=== PATIENT | male | born 1960 | race Caucasian/White ===

== ENCOUNTER → 2021-03-18 | Outpatient (CLI) | payer OTHER | LOC: HEART 5 09:54 | DX: J44.9 Chronic obstructive pulmonary disease, unspecified (principal); Z86.16 Personal history of COVID-19 | CPT/HCPCS: 36600; 71046; 82803; 94060; 94729 ==

== ENCOUNTER → 2021-03-18 | Outpatient (CLI) | payer OTHER | LOC: RT 12:33 | DX: Z86.16 Personal history of COVID-19 (principal) | CPT/HCPCS: 36600; 82803 ==

== ENCOUNTER → 2022-07-28 | Outpatient (CLI) | payer OTHER | LOC: HEART CORB 09:00 | DX: R94.31 Abnormal electrocardiogram [ECG] [EKG] (principal); I50.30 Unspecified diastolic (congestive) heart failure; R06.02 Shortness of breath | CPT/HCPCS: 78452; A9502 ==